=== PATIENT | female | born 1955 | race Caucasian/White ===

== ENCOUNTER 2018-07-27 16:15 | Outpatient (RCR) | payer OTHER, SELFPAY ==
[2018-07-27 21:22] LABS: ALT 26 U/L (12-78); AST 18 U/L (15-37); Albumin 3.6 g/dL (3.4-5.0); Alkaline Phosphatase 89 U/L (46-116); Bilirubin, Total 0.3 mg/dL (0.2-1.0); Cholesterol 226 mg/dL (50-200); HDL Cholesterol 66 mg/dL (40-60); LDL CHOLESTEROL 140 mg/dL (<100); Total Protein 6.5 g/dL (6.4-8.2); Triglyceride 87 mg/dL (30-150)
[2018-07-27 21:31] LABS: Bilirubin, Direct 0.08 mg/dL (0.00-0.20)
== END 2018-08-04 23:59 | disposition home or self-care (01) ==
LOC: NCHCN 16:15
PROVIDERS: PCP Nurse Practitioner Family; Visit Provider Nurse Practitioner Family
DX: L98.9 Disorder of the skin and subcutaneous tissue, unspecified (principal); F32.9 Major depressive disorder, single episode, unspecified; R10.11 Right upper quadrant pain; E78.5 Hyperlipidemia, unspecified
CPT/HCPCS: 80061; 80076; 83721

== ENCOUNTER 2018-08-25 00:22 | Outpatient (CLI) | payer OTHER, SELFPAY ==
--- NOTE | 2018-08-25 11:20 | DI.MAMMO_ITS ---
SYMPTOM/DIAGNOSIS: SCREENING, Z12.31 MAMMOGRAMS: Mammograms were interpreted according to the usual protocol including computer analysis with CAD system, tomosynthesis and C view imaging. The breasts are of moderate density with fairly symmetrical distribution of fibroglandular tissue. No dominant mass or clumped microcalcification is identified in either breast. The current examination is compared with previous examinations including 10/2015. There is a question of interval increase in prominence of a focal area of asymmetric density projected in the central retroareolar portion of the breast on CC view only. Additional mammographic views of this area are requested to include CC spot compression view of the left breast. No other significant change is seen. CONCLUSION: Additional mammographic views of the left breast requested as described above. Breast ultrasound may be indicated as well depending on the results of the additional mammographic views. Category 0. Breast density, category B. MQSA ASSESSMENT OF FINDINGS: Incomplete: Needs additional imaging evaluation. Category 0. Patient will receive a letter notifying them of these results. BI-RADS category B. There are scattered areas of fibroglandular density.
== END 2018-08-25 00:42 ==
PROVIDERS: PCP Nurse Practitioner Family; Visit Provider Nurse Practitioner Family
DX: Z12.31 Encounter for screening mammogram for malignant neoplasm of breast (principal); R92.8 Other abnormal and inconclusive findings on diagnostic imaging of breast
CPT/HCPCS: 77063; 77067

== ENCOUNTER 2018-09-10 00:32 | Outpatient (CLI) | payer OTHER, SELFPAY ==
--- NOTE | 2018-09-10 14:53 | DI.COMBO_ITS ---
SYMPTOMS/DIAGNOSIS: F/U MAMMO, ? INTERVAL INC IN PROMINENCE OF FOCAL AREA OF ASYMMETRIC DENSITY ADDITIONAL VIEWS OF THE LEFT BREAST AND LEFT BREAST ULTRASOUND: Additional images are interpreted according to the usual protocol including tomosynthesis and 2D imaging. Additional views of the left breast fail to show a persistent discrete mass. Breast density B. Sonographic evaluation of the left breast was performed. No cystic or solid masses are present. IMPRESSION: No evidence for malignancy. Yearly mammography is recommended. Category I. The findings were discussed with the patient on the date of the examination. SA ASSESSMENT OF FINDINGS: Negative. Category 1. Patient will receive a letter notifying them of these results. BI-RADS category B. There are scattered areas of fibroglandular density.
== END 2018-09-10 00:52 ==
PROVIDERS: PCP Nurse Practitioner Family; Visit Provider Nurse Practitioner Family
DX: Z12.31 Encounter for screening mammogram for malignant neoplasm of breast (principal); R92.8 Other abnormal and inconclusive findings on diagnostic imaging of breast; N64.59 Other signs and symptoms in breast
CPT/HCPCS: 76642; 77063; 77067

== ENCOUNTER 2019-04-05 01:01 | Outpatient (CLI) | payer OTHER, SELFPAY ==
--- NOTE | 2019-04-05 09:00 | DI.NM_ITS ---
SYMPTOM/DIAGNOSIS: RUQ ABD PAIN, R10.11 CCK HEPATOBILIARY SCAN: 5.0 millicuries of Technetium 99 M Mebrofenin were administered IV. There is normal hepatic uptake. The gallbladder and small bowel are promptly visualized. 1.0 micrograms of Kinevac were administered via IV drip over 40 minutes. A gallbladder ejection fraction is normal at 83%. No symptoms were experienced during the CCK infusion. IMPRESSION: Negative CCK Hepatobiliary scan.
== END 2019-04-05 01:21 ==
PROVIDERS: PCP Nurse Practitioner Family; Visit Provider Nurse Practitioner Family
DX: R10.11 Right upper quadrant pain (principal)
CPT/HCPCS: 78227

== ENCOUNTER 2019-06-02 09:22 | Outpatient (REF) | payer OTHER, SELFPAY ==
--- NOTE | 2019-06-02 08:30 | PAPFT_PTH ---
PATIENT: Lucy Lynch LOC: [facility] U#:[id number] AGE/SX: 64/F ROOM: RE06/02/[address]: Linda Kumar : 1955 BED: DIS: 06/02/2019 SPEC #: [id number] RECD: 06/02/19 13:11 STATUS: SONJA REReyes #: [id number] CIRO: 06/02/19 08:[address]: Linda Kumar DEPT: [facility] Cytology RECD BY: Juanita Post Tissues: 1 - CX/ENDOCX FOR PAP SMEARS Procedures: PAP THIN PREP/UVM Screening HPV DNA PROBE Comments: [id number]
[2019-06-02 14:19] LABS: ALT 16 U/L (14-59); AST 13 U/L (15-37); Albumin 3.8 g/dL (3.4-5.0); Alkaline Phosphatase 92 U/L (46-116); Anion Gap 6.7 mmol/L (3-11); BUN 12 mg/dL (7-18); Bilirubin, Total 0.4 mg/dL (0.2-1.0); CO2 31.3 mmol/L (21.0-32.0); CREATININE 0.77 mg/dL (0.55-1.02); Calcium 8.7 mg/dL (8.5-10.1); Calculated LDL 133 mg/dL; Chloride 104 mmol/L (98-107); Cholesterol 212 mg/dL (50-200); Glucose 86 mg/dL (70-100); HDL Cholesterol 70 mg/dL (40-60); Potassium 4.3 mmol/L (3.5-5.1); Sodium 142 mmol/L (136-145); Total Protein 6.8 g/dL (6.4-8.2); Triglyceride 45 mg/dL (30-150)
== END 2019-06-02 09:42 ==
LOC: NCHCN 09:22
PROVIDERS: PCP Nurse Practitioner Family; Visit Provider Nurse Practitioner Family
DX: Z00.00 Encounter for general adult medical examination without abnormal findings (principal); R10.11 Right upper quadrant pain; F32.9 Major depressive disorder, single episode, unspecified; E78.5 Hyperlipidemia, unspecified; D12.6 Benign neoplasm of colon, unspecified; Z12.4 Encounter for screening for malignant neoplasm of cervix; Z11.51 Encounter for screening for human papillomavirus (HPV); Z01.419 Encounter for gynecological examination (general) (routine) without abnormal findings
CPT/HCPCS: 80053; 80061; 88142; 87624

== ENCOUNTER 2020-11-23 01:11 | Outpatient (CLI) | payer OTHER, SELFPAY ==
--- NOTE | 2020-11-23 13:16 | DI.MAMMO_ITS ---
EXAM: MAMMO SCREENING CLINICAL HISTORY: SCREENING, Z12.31 TECHNIQUE: Mammograms were interpreted according to the usual protocol including computer analysis w [employer] CAD system, tomosynthesis and C-view imaging. COMPARISON: 2013 through 2017 FINDINGS: The breasts are composed of scattered fibroglandular densities, Breast Density category B. No suspicious masses or suspicious microcalcifications are seen. No skin thickening or abnormal axillary lymph nodes are seen. There has been no significant change from prior exams. IMPRESSION: BI-RADS Category 1, Negative mammogram Yearly screening mammography is recommended. Breast Density - Category B, scattered fibroglandular densities. A negative radiographic report should not delay biopsy if a dominant or clinically suspicious mass is present. Up to ten percent of cancers are not identified on mammography. A negative report may reinforce clinical impression. Adenosis and dense breasts may obscure an underlying neoplasm. False positive reports average 6 to 10%. Patient will receive a letter notifying them of these results.
== END 2020-11-23 01:12 ==
LOC: DI 01:11
PROVIDERS: PCP Nurse Practitioner Family; Visit Provider Nurse Practitioner Family
DX: Z12.31 Encounter for screening mammogram for malignant neoplasm of breast (principal)
CPT/HCPCS: 77063; 77067

== ENCOUNTER 2021-12-03 16:26 | Outpatient (REF) | payer OTHER, SELFPAY ==
[2021-12-03 21:39] LABS: ALT 18 U/L (14-59); AST 16 U/L (15-37); Albumin 3.7 g/dL (3.4-5.0); Alkaline Phosphatase 83 U/L (46-116); Anion Gap 6.6 mmol/L (3-11); BUN 10 mg/dL (7-18); Bilirubin, Total 0.4 mg/dL (0.2-1.0); CO2 30.4 mmol/L (21.0-32.0); CREATININE 0.7 mg/dL (0.55-1.02); Calcium 8.8 mg/dL (8.5-10.1); Calculated LDL 142 mg/dL (<100); Chloride 103 mmol/L (98-107); Cholesterol 222 mg/dL (<200); Glucose 77 mg/dL (74-106); HDL Cholesterol 65 mg/dL (40-60); Potassium 4.3 mmol/L (3.5-5.1); Sodium 140 mmol/L (136-145); Total Protein 6.7 g/dL (6.4-8.2); Triglyceride 76 mg/dL (<150)
== END 2021-12-03 16:27 | disposition home or self-care (01) ==
LOC: NCHCN 16:26
PROVIDERS: PCP Nurse Practitioner Family; Visit Provider Nurse Practitioner Family
DX: E78.5 Hyperlipidemia, unspecified (principal); F32.9 Major depressive disorder, single episode, unspecified; R10.11 Right upper quadrant pain; K82.4 Cholesterolosis of gallbladder
CPT/HCPCS: 80053; 80061

== ENCOUNTER → 2022-03-06 01:25 | Outpatient (CLI) | payer OTHER, SELFPAY ==
--- NOTE | 2022-03-06 10:40 | DI.MAMMO_ITS ---
Exam(s) MAMMO SCREENING EXAM: MAMMO SCREENING CLINICAL HISTORY: SCREENING, Z12.31. TECHNIQUE: Bilateral full field digital CC and MLO mammographic images were obtained with 3D tomosyn thesis and utilizing computer aided detection (CAD). COMPARISON: Prior mammograms were reviewed, the most recent being November 2020. FINDINGS: There has been no significant change in the appearance and distribution the fibroglandular tissue. No new significant radiograph findings in left breast. Posteriorly and below center there is a 7 by 4 millimeter nodular density located 8 cm in from the ni pple on the MLO view, not evident on prior studies. Requires further imaging. No malignant-appearing microcalcification groups is region or elsewhere in either breast. There is no significant architectural distortion nor skin thickening-retraction. IMPRESSION: 1. No radiographic evidence of malignancy in left breast. 2. New right breast nodule at approximately 6 o'clock position. Spot compression mammographic views and ultrasound recommended. BI-RADS Category 0 - Assessment Incomplete: Need additional imaging evaluation Breast Density - Category B - Scattered areas of fibroglandular density Breast density Category C or D implies that the patient has dense breast tissue. Dense breast tissue can make it harder to find cancer on a mammogram. Dense breast tissue is also associated with an incr eased risk of breast cancer. This information about the result of the mammogram report was provided to the patient to raise their awareness. Use this report when you speak with the patient about their risks for breast cancer, which includes their family history. At that time, you may recommend additional screening tests (Ultrasoun d or MRI) as these tests may add significant information. A negative radiographic report should not delay biopsy if a dominant or clinically suspicious mass is present. Up to ten percent of cancers are not identified on mammography. A negative report may reinforce clinical impression. Adenosis and dense breasts may obscure an underlying neoplasm. False positive reports average 6 to 10%. Patient will receive a letter notifying them of these results.
== END ==
PROVIDERS: PCP Nurse Practitioner Family; Visit Provider Nurse Practitioner Family
DX: Z12.31 Encounter for screening mammogram for malignant neoplasm of breast (principal); R92.8 Other abnormal and inconclusive findings on diagnostic imaging of breast
CPT/HCPCS: 77063; 77067

== ENCOUNTER 2022-03-06 17:10 | Outpatient (REF) | payer OTHER, SELFPAY ==
[2022-03-06 14:40] LABS: ALT 21 U/L (14-59); AST 13 U/L (15-37); Albumin 3.8 g/dL (3.4-5.0); Alkaline Phosphatase 92 U/L (46-116); Anion Gap 11.4 mmol/L (3-11); BUN 15 mg/dL (7-18); Bilirubin, Total 0.4 mg/dL (0.2-1.0); CO2 27.6 mmol/L (21.0-32.0); CREATININE 0.9 mg/dL (0.55-1.02); Calculated LDL 118 mg/dL (<100); Chloride 102 mmol/L (98-107); Cholesterol 216 mg/dL (<200); Glucose 83 mg/dL (74-106); HDL Cholesterol 82 mg/dL (40-60); Potassium 4.2 mmol/L (3.5-5.1); Sodium 141 mmol/L (136-145); Total Protein 6.7 g/dL (6.4-8.2); Triglyceride 84 mg/dL (<150)
== END 2022-03-06 17:11 | disposition home or self-care (01) ==
LOC: NCHCN 17:10
PROVIDERS: PCP Nurse Practitioner Family; Visit Provider Nurse Practitioner Family
DX: E78.5 Hyperlipidemia, unspecified (principal); R10.11 Right upper quadrant pain
CPT/HCPCS: 80053; 80061

== ENCOUNTER → 2022-03-18 01:45 | Outpatient (CLI) | payer OTHER, SELFPAY ==
--- NOTE | 2022-03-18 | DI.MAMMO_ITS ---
Exam(s) MG MAMMO SCREEN CALL BACK UNI US BREAST RT COMPLETE EXAM: MG MAMMO SCREEN CALL BACK UNI -RIGHT AND COMPLETE RIGHT BREAST ULTRASOUND CLINICAL HISTORY: NODULAR DENSITY RT BREAST. TECHNIQUE: Unilateral spot mammographic images obtained with 3D tomosynthesisand utilizing computer aided detection (CAD). . Complete Right breast Ultrasound was also performed, including all 4 quadrants, the retroareolar jcarlos on, and the ipsilateral axilla. COMPARISON: Prior mammograms were reviewed. This additional imaging was performed due to findings described on the recent screening mammogram of 03/06/2022. FINDINGS: NASI RIGHT BREAST MAMMOGRAM: Additional mammographic views performed todaydo not dissipate this nodule. Therefore proceeded with ultrasound. COMPLETE RIGHT BREAST ULTRASOUND: All 4 quadrants were scanned as well as the retroareolar region and right axilla. There is a solitary finding which is at the 6 o'clock position and which corresponds to the finding o n the mammogram. This is a wider than taller 6 x 3 millimeter nodule which is either conglomeration microcysts, hemorrhagic microcyst, small fibroadenoma, or lymph node. Less likely ominous pathology. No associated worrisome decreased through transmission. No other focal ultrasound findings evident in all 4 quadrants nor in the immediate retroareolar regio n. Scanning of the ipsilateral right axilla is negative for significant adenopathy. IMPRESSION: Finding at 6 o'clock position as described above. Appearance is benign but requires appropriate foll ow-up. Recommend repeat right breast imaging in 3 months, this to include repeat right breast mammogram and ultrasound. Findings recommendations were discussed by myself with the patient today. BI-RADS Category 3 - 3 month - Probably Benign Finding: Recommend follow-up breast imaging as describ ed above in 3 months Breast Density - Category B - Scattered areas of fibroglandular density Breast density Category C or D implies that the patient has dense breast tissue. Dense breast tissue can make it harder to find cancer on a mammogram. Dense breast tissue is also associated with an incr eased risk of breast cancer. This information about the result of the mammogram report was provided to the patient to raise their awareness. Use this report when you speak with the patient about their risks for breast cancer, which includes their family history. At that time, you may recommend additional screening tests (Ultrasoun d or MRI) as these tests may add significant information. A negative radiographic report should not delay biopsy if a dominant or clinically suspicious mass is present. Up to ten percent of cancers are not identified on mammography. A negative report may reinforce clinical impression. Adenosis and dense breasts may obscure an underlying neoplasm. False positive reports average 6 to 10%. Patient will receive a letter notifying them of these results.
== END ==
PROVIDERS: PCP Nurse Practitioner Family; Visit Provider Nurse Practitioner Family
DX: Z12.31 Encounter for screening mammogram for malignant neoplasm of breast (principal); R92.8 Other abnormal and inconclusive findings on diagnostic imaging of breast; N63.15 Unspecified lump in the right breast, overlapping quadrants
CPT/HCPCS: 76642; 77063; 77067

== ENCOUNTER → 2022-07-29 01:45 | Outpatient (CLI) | payer OTHER, SELFPAY ==
--- NOTE | 2022-07-29 10:15 | DI.MAMMO_ITS ---
Exam(s) MG MAMMO DIAGNOSTIC UNI US BREAST RT COMPLETE EXAM: MG MAMMO DIAGNOSTIC UNI AND COMPLETE RIGHT BREAST ULTRASOUND CLINICAL HISTORY: 3-MO F/U ABNL RT MAMMO, R92.8. TECHNIQUE: Unilateral right breast CC and MLO mammographic images were obtained with 3D tomosynthesi s technique and utilizing computer aided detection (CAD). We also performed spot compression MLO vie w. Complete right breast ultrasound was also performed including all 4 quadrants, the retroareolar regio n, and right axilla. COMPARISON: Prior mammograms were reviewed, the most recent being March 2022. Prior ultrasound March 2022 was also reviewed.. FINDINGS: DIAGNOSTIC RIGHT BREAST MAMMOGRAM: There has been no significant change in the appearance and distrib ution of the fibroglandular tissue. The previously described 7 x 4 millimeter nodule posteriorly located 8 cm in from the nipple on the M LO view appears unchanged. No other focal mammographic findings in the right breast. COMPLETE RIGHT BREAST ULTRASOUND: No evidence of solid or significant cystic lesions in all 4 quadran ts. We were not able to locate the previously described 6 o'clock position 6 x 3 millimeter nodule d escribed on the ultrasound examination of 03/18/2022, further evidence that is most probably benign. Benign-appearing lymph node in the axilla noted. IMPRESSION: Stable mammographic appearance of the previously described right breast finding. Negative complete right breast ultrasound. Appropriate follow-up is to keep this patient on her yearly mammogram schedule, implying that her nex t bilateral mammogram would be in March 2023, with earlier imaging if a self detected breast change is noted.. The patient was informed of the findings and follow-up recommendations by myself prior to leaving the department today. BI-RADS Category 2 - Benign Findings Breast Density - Category B - Scattered areas of fibroglandular density Breast density Category C or D implies that the patient has dense breast tissue. Dense breast tissue can make it harder to find cancer on a mammogram. Dense breast tissue is also associated with an incr eased risk of breast cancer. This information about the result of the mammogram report was provided to the patient to raise their awareness. Use this report when you speak with the patient about their risks for breast cancer, which includes their family history. At that time, you may recommend additional screening tests (Ultrasoun d or MRI) as these tests may add significant information. A negative radiographic report should not delay biopsy if a dominant or clinically suspicious mass is present. Up to ten percent of cancers are not identified on mammography. A negative report may reinforce clinical impression. Adenosis and dense breasts may obscure an underlying neoplasm. False positive reports average 6 to 10%. Patient will receive a letter notifying them of these results.
== END ==
PROVIDERS: PCP Nurse Practitioner Family; Visit Provider Nurse Practitioner Family
DX: R92.8 Other abnormal and inconclusive findings on diagnostic imaging of breast (principal)
CPT/HCPCS: 76642; 77061; 77065; G0279

== ENCOUNTER 2023-02-24 16:23 | Outpatient (REF) | payer OTHER, SELFPAY ==
[2023-02-24 20:59] LABS: Calculated LDL 102 mg/dL (<100); Cholesterol 208 mg/dL (<200); HDL Cholesterol 70 mg/dL (40-60); Triglyceride 181 mg/dL (<150)
== END 2023-02-24 16:24 | disposition home or self-care (01) ==
LOC: NCHCN 16:23
PROVIDERS: PCP Nurse Practitioner Family; Visit Provider Nurse Practitioner Family
DX: E78.5 Hyperlipidemia, unspecified (principal); F32.9 Major depressive disorder, single episode, unspecified; R10.11 Right upper quadrant pain; K82.4 Cholesterolosis of gallbladder
CPT/HCPCS: 80061

== ENCOUNTER 2023-02-25 13:49 | Outpatient (REF) | payer OTHER, SELFPAY ==
[2023-02-25 14:11] LABS: Source Nasal/Nares
[2023-02-25 15:24] LABS: COVID-19 PCR Negative (Negative)
== END 2023-02-25 13:50 | disposition home or self-care (01) ==
LOC: LBN 13:49
PROVIDERS: PCP Nurse Practitioner Family; Visit Provider Obstetrics & Gynecology
DX: Z20.822 Contact with and (suspected) exposure to COVID-19 (principal)
CPT/HCPCS: 87635

== ENCOUNTER → 2023-09-18 00:45 | Outpatient (CLI) | payer OTHER, SELFPAY ==
--- NOTE | 2023-09-18 | DI.MAMMO_ITS ---
Exam(s) MAMMO SCREENING EXAM: MAMMO SCREENING CLINICAL HISTORY: SCREENING, Z12.31 TECHNIQUE: Mammograms were interpreted according to the usual protocol including computer analysis w [employer] CAD system, tomosynthesis and C-view imaging. COMPARISON: US US BREAST RT COMPLETE from 03/18/2022 US US BREAST RT COMPLETE from 07/29/2022 Mammograms 2013 through 2021 FINDINGS: The breasts are composed of scattered fibroglandular densities, Breast Density category B. No suspicious masses or suspicious microcalcifications are seen. There has been no change in the pre viously noted smoothly marginated nodule in the posterior inferior right breast. No skin thickening or abnormal axillary lymph nodes are seen. There has been no significant change from prior exams. IMPRESSION: BI-RADS Category 2 - Negative Mammogram with benign findings. Yearly screening mammography is recomm ended. Breast Density - Category B, scattered fibroglandular densities. A negative radiographic report should not delay biopsy if a dominant or clinically suspicious mass is present. Up to ten percent of cancers are not identified on mammography. A negative report may reinforce clinical impression. Adenosis and dense breasts may obscure an underlying neoplasm. False positive reports average 6 to 10%. Patient will receive a letter notifying them of these results.
== END ==
PROVIDERS: PCP Nurse Practitioner Family; Visit Provider Nurse Practitioner Family
DX: Z12.31 Encounter for screening mammogram for malignant neoplasm of breast (principal)
CPT/HCPCS: 77063; 77067

== ENCOUNTER 2024-12-01 02:02 | Outpatient (CLI) | payer OTHER, SELFPAY ==
--- NOTE | 2024-12-01 09:55 | DI.MAMMO_ITS ---
Exam(s) MAMMO SCREENING EXAM: MAMMO SCREENING CLINICAL HISTORY: SCREENING,Z12.31 TECHNIQUE: Mammograms were interpreted according to the usual protocol including computer analysis w [employer] CAD system, tomosynthesis and C-view imaging. COMPARISON: 2015 through 2022 FINDINGS: The breasts are composed of scattered fibroglandular densities, Breast Density category B. No suspicious masses or suspicious microcalcifications are seen. No skin thickening or abnormal axillary lymph nodes are seen. There has been no significant change from prior exams. IMPRESSION: BI-RADS Category 1, Negative mammogram Yearly screening mammography is recommended. Breast Density - Category B, scattered fibroglandular densities. A negative radiographic report should not delay biopsy if a dominant or clinically suspicious mass is present. Up to ten percent of cancers are not identified on mammography. A negative report may reinforce clinical impression. Adenosis and dense breasts may obscure an underlying neoplasm. False positive reports average 6 to 10%. Patient will receive a letter notifying them of these results.
== END 2024-12-01 02:22 ==
LOC: DI 02:02
PROVIDERS: PCP Nurse Practitioner Family; Visit Provider Nurse Practitioner Family
DX: Z12.31 Encounter for screening mammogram for malignant neoplasm of breast (principal); R92.323 Mammographic fibroglandular density, bilateral breasts
CPT/HCPCS: 77063; 77067